=== PATIENT | male | born 1960 ===

== ENCOUNTER 2023-04-19 14:48 | Inpatient (IN) | payer MEDICARE, MEDICAID, SELFPAY ==
[2023-04-19] VITALS (11 sets, daily range): BP systolic 103–122; BP diastolic 68–76; PULSE 108–121; RESP 15–25; TEMP 36.8; O2SAT 94–100
--- NOTE | ~2023-04-19 | XR_ITS ---
EXAMINATION: [id number] DATE: 04/20/2023 14:48 INDICATION: Left knee pain and swelling TECHNIQUE: AP and crosstable lateral views of the left knee were obtained. COMPARISON: None. FINDINGS: Bone alignment is normal. No fracture. Tricompartmental osteoarthritis with marginal osteophytes in a ll 3 compartments of the knee. Severe joint space narrowing the patellofemoral compartment and modera te joint space narrowing the medial compartment which could be underestimated on nonweightbearing mati ging. Small left knee joint effusion with loose osteochondral bodies versus calcific debris in the chan prapatellar pouch. IMPRESSION: 1. Left knee tricompartmental osteoarthritis, severe in the patellofemoral compartment and at least m oderate severity medial compartment. 2. Small left knee joint effusion. Reviewed, dictated and finalized at location A. INE WASHER IMPRESSION: 1. Left knee tricompartmental osteoarthritis, severe in the patellofemoral comp artment and at least moderate severity medial compartment. 2. Small left knee joint effusion.
--- NOTE | ~2023-04-19 | CT_ITS ---
EXAMINATION: CTA chest PE protocol DATE: 04/19/2023 16:24 INDICATION: Tachypnea. Tachycardia. Shortness of breath. TECHNIQUE: Computed tomography angiography (CTA) of the chest was performed with 100 mL Omnipaque-350 intravenous contrast timed to evaluate the pulmonary arteries. Coronal maximum intensity projection 3D-reconstructions were created by the technologist. Automated exposure control and iterative reconst ruction technique were employed. The dose-length product was 613.41 mGy-cm. COMPARISON: None. FINDINGS: There is mild scarring at the lung apices. There is mild scarring in posterior right lung. There is mild emphysema. There is mild atelectasis bilaterally. No pleural effusion. There is a right posterior tracheal diverticulum at the thoracic inlet. The heart size is normal. No pericardial effu jessica. There is no pulmonary embolus. Bilateral gynecomastia is noted. There is mild mediastinal lymph adenopathy, likely reactive. A right upper extremity peripherally inserted central venous catheter (P ICC) is seen with tip at the superior cavoatrial junction. There is moderate thoracic spondylosis. IMPRESSION: 1. No pulmonary embolus. Sensitivity is moderately decreased by motion artifact. 2. Mild emphysema. 3. Mild mediastinal lymphadenopathy, likely reactive. Reviewed, dictated and finalized at location E. CENTER MANAGER IMPRESSION: 1. No pulmonary embolus. Sensitivity is moderately decreased by motion artifact . 2. Mild emphysema. 3. Mild mediastinal lymphadenopathy, likely reactive.
--- NOTE | ~2023-04-19 | CT_ITS ---
EXAMINATION: CT brain wo con DATE: 04/20/2023 10:02 INDICATION: Brain abscess. TECHNIQUE: Computed tomography (CT) of the head was performed without intravenous contrast. The mA wa s adjusted according to patient size. Iterative reconstruction technique was employed. The dose-lengt h product was 681.00 mGy-cm. COMPARISON: None FINDINGS: There is hypoattenuation in the right cerebellum. There are changes of posterior craniotomy . There is no intracranial hemorrhage or abnormal mass lesion. The ventricles are normal in size. The re is mild mucosal thickening in the paranasal sinuses. The mastoid air cells are normal. There is a solange hole in the right frontal bone. IMPRESSION: 1. Hypoattenuation in the right cerebellum, consistent with infarct and/or infection. Correlate with outside imaging. Reviewed, dictated and finalized at location E. GER SPANISH IMPRESSION: 1. Hypoattenuation in the right cerebellum, consistent with infarct and/or infe ction. Correlate with outside imaging.
--- NOTE | 2023-04-19 15:38 | ECG_ITS ---
Measurements Intervals [place] Rate: 112 P: 75 VT: 161 QRS: 70 QRSD: 85 T: -89 QT: 367 QTc: 503 Interpretive Statements SINUS TACHYCARDIA ST-T WAVE ABNORMALITY IN ANTEROLAT/INF LEADS- CONSIDER ISCHEMIA BASELINE ARTIFACT- I, II, AVR, AVL, AVF, V1-V6 ABNORMAL ECG NO PREVIOUS ECG AVAILABLE FOR COMPARISON Electronically Signed On 04-19-2023 15:51:31 [employer]OTGUN SHE[employer] REPRINTING UNIT OPERATOR by John Maxwell D.O.
--- NOTE | 2023-04-19 15:43 | ED.RECABL ---
HPI - Recheck/Abnormal Lab/Rx General Chief Complaint: Recheck/Abnormal Lab/Rx Stated Complaint: r/o PE Time Seen by Provider: 04/19/23 15:16 History of Present Illness HPI narrative: Patient is a 63-year-old male presenting from a rehab center for evaluation of tachypnea. Patient was recently discharged from a tertiary care center after being treated for a brain abscess. Today he was noted to be tachypneic and tachycardic and they became concerned for possible PE given his recent hospitalization. He was sent in for evaluation of this. Currently, the patient denies any complaints. No chest pain or shortness of breath. States that he did cough earlier today. No leg swelling. No complaints currently. Related Data Home Medications Medication Instructions Recorded Confirmed acetaminophen 325 mg tablet 650 mg PO Q4H PRN pain 1-4 04/10/23 04/20/23 atorvastatin 80 mg tablet 80 mg PO DAILY 04/10/23 04/20/23 ceftriaxone 2 gram intravenous 2 g IV Q12H 04/10/23 04/20/23 piggyback heparin (porcine) 5,000 unit/mL 5,000 unit subcut Q8H 04/10/23 04/20/23 injection solution insulin lispro 100 unit/mL 2 - 5 unit subcut TIDWMEAL 04/10/23 04/20/23 subcutaneous solution losartan 25 mg tablet 25 mg PO DAILY 04/10/23 04/20/23 metoprolol tartrate 25 mg tablet 12.5 mg PO BID 04/10/23 04/20/23 metronidazole 500 mg tablet 500 mg PO Q6H 04/10/23 04/20/23 quetiapine 25 mg tablet 12.5 mg PO BID@0900,1500 04/10/23 04/20/23 quetiapine 25 mg tablet 25 mg PO HS 04/10/23 04/20/23 ramelteon 8 mg tablet (Rozerem) 8 mg PO HS 04/10/23 04/20/23 sodium chloride 1,000 mg soluble 1,000 mg PO TIDWM 04/10/23 04/20/23 tablet thiamine HCl (vitamin B1) 100 mg 100 mg PO DAILY 04/10/23 04/20/23 tablet polyethylene glycol 3350 17 gram 17 g PO DAILY PRN Constipation 04/20/23 04/20/23 oral powder packet tramadol 50 mg tablet 50 mg PO Q6H PRN pain 6-10 04/20/23 04/20/23 Allergies Allergy/AdvReac Type Severity Reaction Status Date / Time codeine Allergy Hives Verified 04/10/23 15:00 hydromorphone [From Dilaudid] AdvReac Agitated Verified 04/21/23 03:40 Review of Systems Review of Systems: All systems reviewed & are unremarkable except as noted in HPI and below PMFSH Past Medical History Medical History Brain surgery within last 3 months HTN (hypertension) Family History Family History Other Unknown family medical history Social History Social History Smoking status: Never smoker Alcohol intake: never Substance use: never Do You Feel Safe in your Home?: Yes Lack of Transportation: No Lack of Food: Never True Current Housing: I Have Housing Concerned About Future Housing: No Difficulty Paying Gas/Electric Bills: No Difficulty Paying for Meds: No Currently Unemployed: No Education: High School Diploma/GED Difficulty w/ Childcare or Family Care: No Spiritual care concerns: No Exam Narrative: GENERAL: nontoxic, no acute distress HEAD: Normocephalic, atraumatic. EYES: PERRLA and EOMI. ENT: grossly unremarkable NECK: Supple. CHEST: Clear to auscultation. No respiratory distress. HEART: tachycardic, regular rhythm ABDOMEN: Soft, nontender, nondistended EXTREMITIES: Normal range of motion. No edema. SKIN: Warm, dry NEURO: at baseline Alert and oriented x2. PSYCH: Normal mood and affect. Course Vital Signs Vital signs: Vital Signs Temperature 98.2 F 04/19/23 14:48 Pulse Rate 108 H 04/19/23 14:48 Respiratory Rate 16 04/19/23 14:48 Blood Pressure 103/72 04/19/23 14:48 Pulse Oximetry 100 04/19/23 14:48 Oxygen Delivery Room Air 04/19/23 14:48 Temperature 99.6 F 04/21/23 16:00 Pulse Rate 122 H 04/21/23 18:00 Respiratory Rate 28 H 04/21/23 16:00 Blood Pressure 108/66 04/21/23 16:00 Pu
[2023-04-19] MEDS: SODIUM CHLORIDE 0.9% IV 1,000 ML 999 ML IV CONT ×2 (15:46→20:50)
[2023-04-19 15:52] LABS: Basophils Percent Auto 0.3 % (0.2-1.2); Eosinophils Absolute Auto 0.2 K/mm3 (0-0.3); Eosinophils Percent Auto 1.7 % (0-4.4); Hematocrit 27.2 % (42.0-52.0); Hemoglobin 8.6 g/dL (14.0-18.0); Immature Granulocyte Absolute 0.04 K/mm3 (0.00-0.031); Immature Granulocyte Percent A 0.4 % (0-0.5); Lymphocytes Percent Auto 9.8 % (18.3-44.2); Mean Corpuscular HGB Conc 31.6 g/dl (32-36); Mean Corpuscular Hemoglobin 30.3 pg (26-34); Mean Corpuscular Volume 95.8 fl (80-100); Mean Platelet Volume 9.2 fl (7.4-10.4); Monocytes Absolute Auto 0.8 K/mm3 (0.1-0.6); Monocytes Percent Auto 8.2 % (2.6-8.5); Neutrophils Absolute Auto 7.3 K/mm3 (1.3-6.7); Neutrophils Percent Auto 79.6 % (45.5-73.1); Platelet Count Result 283 k/mm3 (150-375); Red Blood Count 2.84 M/mm3 (4.6-6.20); White Blood Count 9.2 K/mm3 (4.5-10.0)
[2023-04-19 16:03] LABS: INR 1.4; Prothrombin Time 17.8 Seconds (11.1-14.7)
[2023-04-19 16:04] LABS: Partial Thromboplastin Time 63.3 SECONDS (22.3-36.8)
[2023-04-19 16:05] LABS: Alanine Aminotransferase 71 U/L (6-50); Albumin Level 3.1 g/dL (3.5-5.1); Alkaline Phosphatase 89 U/L (38-126); Anion Gap 4 mmol/L (8-16); Aspartate Amino Transferase 47 U/L (17-59); Bilirubin,Total 0.5 mg/dL (0.2-1.3); Blood Urea Nitrogen 10 mg/dL (9-20); Calcium 8.2 mg/dL (8.4-10.2); Carbon Dioxide 29 mmol/L (22-30); Chloride 93 mmol/L (98-107); Estimated CRCL calculation 127 ml/min; Estimated Glomerular Filt Rate > 60; Glucose 117 mg/dL (65-110); Potassium 3.9 mmol/L (3.4-5.0); Sodium 126 mmol/L (137-145)
--- NOTE | 2023-04-19 16:14 | PC.NURSE ---
Pt taken to ct
--- NOTE | 2023-04-19 16:22 | PC.NURSE ---
pt returned to room 3
[2023-04-19 16:37] LABS: Influenza A QL RT-PCR Negative (Negative); Influenza B QL RT-PCR Negative (Negative); RSV RNA, RT-PCR Negative (Negative); SARS-CoV-2 RNA PCR Negative (Negative)
--- NOTE | 2023-04-19 18:09 | PC.NURSE ---
Mela at [facility] called for update on patient
--- NOTE | 2023-04-19 18:19 | PC.NURSE ---
Ice chips provided per request after MD approval
--- NOTE | 2023-04-19 19:07 | PC.NURSE ---
Report given to SHELLY Zayas. Care of pt transferred.
--- NOTE | 2023-04-19 19:16 | ECG_ITS ---
Measurements Intervals [place] Rate: 118 P: 62 AR: 167 QRS: 60 QRSD: 89 T: 256 QT: 330 QTc: 463 Interpretive Statements SINUS TACHYCARDIA ST-T WAVE ABNORMALITY IN ANTNEROLAT/INF LEADS- CONSIDER ISCHEMIA ABNORMAL ECG COMPARED TO ECG 04/19/2023 15:47:54 NO SIGNIFICANT CHANGES Electronically Signed On 04-20-2023 10:50:[address]MIN[address] by John Maxwell D.O.
[2023-04-19 19:43] LABS: Troponin I 0.093 ng/mL (0.000-0.034)
--- NOTE | 2023-04-19 20:38 | PM.IMHP ---
H&P: HPI History of Present Illness Date/Time: 04/19/23 20:38 Chief Complaint: Tachycardic Narrative: This is a 63-year-old male with past medical history significant abscess complicated with intracranial hemorrhage and mass effect, takotsubo cardiomyopathy, who comes for evaluation to the emergency room from [facility] patient was tachycardic while in his physical therapy session. In emergency room preliminary workup was significant for chemistry panel shows sodium 126 chloride 95, patient was ruled out for PE with a negative CTA chest PE protocol EXAMINATION: CTA chest PE protocol DATE: 04/19/2023 16:24 INDICATION: Tachypnea. Tachycardia. Shortness of breath. TECHNIQUE: Computed tomography angiography (CTA) of the chest was performed with 100 mL Omnipaque-350 intravenous contrast timed to evaluate the pulmonary arteries. Coronal maximum intensity projection 3D-reconstructions were created by the technologist. Automated exposure control and iterative reconstruction technique were employed. The dose-length product was 613.41 mGy-cm. COMPARISON: None. FINDINGS: There is mild scarring at the lung apices. There is mild scarring in posterior right lung. There is mild emphysema. There is mild atelectasis bilaterally. No pleural effusion. There is a right posterior tracheal diverticulum at the thoracic inlet. The heart size is normal. No pericardial effusion. There is no pulmonary embolus. Bilateral gynecomastia is noted. There is mild mediastinal lymphadenopathy, likely reactive. A right upper extremity peripherally inserted central venous catheter (PICC) is seen with tip at the superior cavoatrial junction. There is moderate thoracic spondylosis. IMPRESSION: 1. No pulmonary embolus. Sensitivity is moderately decreased by motion artifact. 2. Mild emphysema. 3. Mild mediastinal lymphadenopathy, likely reactive. Review of Systems Review of Systems: brain abscess, intracranial hemorrhage ROS unobtainable: Yes unobtainable due to medical condition ( patient is unable to provide any meaningful history) [facility] Past Medical History Medical History Brain surgery within last 3 months HTN (hypertension) Family History Family History Other Unknown family medical history Social History Social History Smoking status: Never smoker Alcohol intake: never Substance use: never Do You Feel Safe in your Home?: Yes Lack of Transportation: No Lack of Food: Never True Current Housing: I Have Housing Concerned About Future Housing: No Difficulty Paying Gas/Electric Bills: No Difficulty Paying for Meds: No Currently Unemployed: No Education: High School Diploma/GED Difficulty w/ Childcare or Family Care: No Spiritual care concerns: No Meds Home Medications and Allergies Home Medications Medication Instructions Recorded Confirmed Type acetaminophen 325 mg tablet 650 mg PO Q4H PRN pain 1-4 04/10/23 04/20/23 History atorvastatin 80 mg tablet 80 mg PO DAILY 04/10/23 04/20/23 History ceftriaxone 2 gram intravenous 2 g IV Q12H 04/10/23 04/20/23 History piggyback heparin (porcine) 5,000 unit/mL 5,000 unit subcut Q8H 04/10/23 04/20/23 History injection solution insulin lispro 100 unit/mL 2 - 5 unit subcut TIDWMEAL 04/10/23 04/20/23 History subcutaneous solution losartan 25 mg tablet 25 mg PO DAILY 04/10/23 04/20/23 History metoprolol tartrate 25 mg tablet 12.5 mg PO BID 04/10/23 04/20/23 History metronidazole 500 mg tablet 500 mg PO Q6H 04/10/23 04/20/23 History quetiapine 25 mg tablet 12.5 mg PO BID@0900,1500 04/10/23 04/20/23 History quetiapine 25 mg tablet 25 mg PO HS 04/10/23 04/20/23 History ramelteon 8 mg tablet (Rozerem) 8 mg PO HS 04/10/23 04/20/23 History sodium chloride 1,000 mg soluble 1
--- NOTE | 2023-04-19 21:56 | ECG_ITS ---
Measurements Intervals [place] Rate: 115 P: 84 MN: 160 QRS: 71 QRSD: 97 T: 261 QT: 363 QTc: 503 Interpretive Statements SINUS TACHYCARDIA ST-T WAVE ABNORMALITY IN ANTEROLAT/INF LEADS- CONSIDER ISCHEMIA BASELINE ARTIFACT- I, V1-V2 ABNORMAL ECG COMPARED TO ECG 04/19/2023 19:16:02 NO SIGNIFICANT CHANGES Electronically Signed On 04-20-2023 10:59:41 FORESTRY CREW CHIEF by John Maxwell D.O.
[2023-04-19 22:33] LABS: Troponin I 0.096 ng/mL (0.000-0.034)
--- NOTE | 2023-04-19 23:15 | ADMGEN ---
This patient, Pernell Kennedy, was admitted to Intensive Care Unit-1. Patient/family oriented to hospital policies and general routines including ID bracelet, bed and alarms, visiting hours, pain management, procedures, bathroom and other care routines, personal items, smoking policy, room service/diet, and visiting hours. Information on how to activate the Rapid Response Team has been discussed. Patient/Family are encouraged to report perceived risks to care and to ask questions if they do not understand what they are told or what they should do.
[2023-04-20] VITALS (15 sets, daily range): BP systolic 101–143; BP diastolic 60–97; PULSE 98–123; RESP 15–30; TEMP 36.8–37.5; O2SAT 95–100
[2023-04-20] MEDS: CENTRAL LINE FLUSH 10 ML IV PUSH ×4 (04:54→21:04)
[2023-04-20 05:15] LABS: Hematocrit 25.6 % (42.0-52.0); Hemoglobin 8.2 g/dL (14.0-18.0); Mean Corpuscular Hemoglobin 30.3 pg (26-34); Mean Corpuscular Volume 94.5 fl (80-100); Mean Platelet Volume 9.8 fl (7.4-10.4); Platelet Count Result 308 k/mm3 (150-375); Red Blood Count 2.71 M/mm3 (4.6-6.20); Red Cell Distribution Width 13.9 % (11.5-14.5); White Blood Count 8.7 K/mm3 (4.5-10.0)
[2023-04-20 05:21] LABS: Magnesium 1.7 mg/dL (1.6-2.3); Phosphorus 3.7 mg/dL (2.5-4.5)
--- NOTE | 2023-04-20 06:00 | ECHO_ITS ---
Patient Info Name: Pernell Kennedy Age: 63 years : 1960 Gender: Male Ht: 78 in Wt: 187 lbs BSA: 2.15 m2 HR: 106 bpm BP: 143 / 78 mmHg Heart Rhythm: Tachycardia Technical Quality: Poor Exam Date: 04/20/2023 8:57 AM Exam Location: Echo Lab Patient Status: Inpatient Admit Date: 04/19/2023 Staff Ordering Physician: Odalis Mohr MD Mexican Food Maker Hand: Casie Weeks RDCS Attending Provider: Kenya Hinkle MD Referring Physician: Onur MENSAH; Exam Type: CA echo dop color flow w con Study Info Indications - elevated troponin, recent hx of takotsubo Complete two-dimensional, color flow and Doppler transthoracic echocardiogram is performed with contrast to opacify the left ventricle and to improve the deliniation of the left ventricle endocardial borders. Contrast/Agitated Saline Contrast/Ag. Saline: Definity Amount: 3.00 ml Reason for Poor Study: poor echocardiographic windows Summary 1. Normal left ventricular size with mild concentric hypertrophy. The left ventricle is not well visualized even with Definity echo contrast, but there appears to be mild to moderate global hypokinesis. Ejection fraction is 40-50% visually. Normal diastolic function. 2. Left atrial chamber dimension is mildly enlarged. 3. No significant valve disease. 4. Normal estimated pulmonary pressure. 5. Tachycardia, probably sinus tachycardia. 6. Technically difficult study with limited views. Left Ventricle Left ventricular chamber dimension is normal. Left ventricular systolic function is normal, estimated at 40-45%. There is mildly increased left ventricular wall thickness. Left ventricular septal wall motion is normal. The left ventricular diastolic function is normal. Right Ventricle Right ventricular chamber dimension is normal. Right ventricular systolic function is normal. Left Atria Left atrial chamber dimension is mildly enlarged. Right Atria Right atrial chamber dimension is normal. Aortic Valve The aortic valve is trileaflet. There is no aortic valve sclerosis. There is no aortic valve stenosis. There is no aortic valve regurgitation. Pulmonic Valve The pulmonic valve is normal. There is no pulmonic valve stenosis. There is no pulmonic regurgitation. Mitral Valve The mitral valve has normal leaflets. There is no mitral valve stenosis. There is trace mitral valve regurgitation. Tricuspid Valve The tricuspid valve leaflets are normal. There is no significant tricuspid valve stenosis. There is trace tricuspid valve regurgitation. No pulmonary hypertension, estimated pulmonary arterial systolic pressure is 26 mmHg. Pericardium/Pleural The pericardium appears normal. There is no pericardial effusion. Inferior Vena Cava Normal inferior vena cava with >50% collapse upon inspiration consistent with Empty right atrial pressure, 10 mmHg. Aorta The aortic root size at the sinus of Valsalva is normal. The prox ascending aorta size is normal. Left Ventricular Outflow Tract Name Value Normal LVOT 2D LVOT Diameter 2.11 cm LVOT Doppler LVOT Peak Gradient 4 mmHg LVOT Mean Gradient 2 mmHg
[2023-04-20 08:29] LABS: Anion Gap 5 mmol/L (8-16); Blood Urea Nitrogen 6 mg/dL (9-20); Calcium 8.2 mg/dL (8.4-10.2); Carbon Dioxide 27 mmol/L (22-30); Chloride 97 mmol/L (98-107); Estimated CRCL calculation 139 ml/min; Estimated Glomerular Filt Rate > 60; Glucose 97 mg/dL (65-110); Potassium 3.5 mmol/L (3.4-5.0); Sodium 129 mmol/L (137-145)
[2023-04-20] MEDS: PERFLUTREN LIPID MICROSPHERES 1.5 ML VIAL DILUTED TO 10 ML TOTAL VOLUME IV PUSH (08:55)
[2023-04-20 09:02] LABS: Troponin I 0.086 ng/mL (0.000-0.034)
[2023-04-20] MEDS: HEPARIN SODIUM 5,000 UNITS/ML VIAL 5000 UNITS SUB-Q ×3 (10:15→21:04)
[2023-04-20] MEDS: ATORVASTATIN 40 MG TABLET 80 MG PO (10:16)
[2023-04-20] MEDS: THIAMINE HCL 100 MG TABLET PO (10:16)
[2023-04-20] MEDS: METOPROLOL TARTRATE 12.5 MG TABLET PO ×2 (10:16→21:03)
[2023-04-20] MEDS: SODIUM CHLORIDE 1 GM TABLET PO ×3 (10:16→17:24)
[2023-04-20] MEDS: LOSARTAN POTASSIUM 25 MG TABLET PO (10:16)
[2023-04-20] MEDS: QUEtiapine FUMARATE 12.5 MG TABLET PO ×2 (10:16→14:10)
--- NOTE | 2023-04-20 10:16 | PCOTNOTE ---
RN requesting hold on OT evaluation this morning due to multiple tests this morning and pt has not had morning meds yet. RN asks to check back in the pm.
[2023-04-20] MEDS: metroNIDAZOLE 250 MG TABLET 500 MG PO ×2 (10:17→17:24)
[2023-04-20] MEDS: cefTRIAXone 2 GM/NS 100 ML 2 GM/100 ML BAG IVPB ×2 (10:18→21:03)
[2023-04-20] MEDS: MAGNESIUM SULF 2 GM/WATER 50ML 2 GM/50 ML BAG IVPB (10:26)
[2023-04-20 11:28] LABS: Glucose Point of Care 214 mg/dl (65-105)
--- NOTE | 2023-04-20 11:50 | PC.NURSE ---
Moni from [facility] transfer center called; patient has been accepting but no bed available yet
--- NOTE | 2023-04-20 11:56 | IVDEFINITY ---
Prior to administration of IV Definity the patient was educated on the risks and benefits of the imaging enhancing agent including potential adverse side effects. The patient verbalized understanding. Allergies were verified. No exclusion criteria were identified and at least one of the following inclusion criteria were met: 1) physician request, 2) patient technically difficult to image (per the [place] [employer] Echocardi[employer] guidelines of two or more segments not discernable within the apical view), or 3) questionable left ventricular function. ?
[2023-04-20] MEDS: INSULIN ASPART (*BKC) 100 UNITS/ML SUB-Q (12:07)
--- NOTE | 2023-04-20 13:33 | PM.IMPN ---
Progress Note: A&P Assessment and Plan (1) Tachycardia: Code(s): R00.0 - Tachycardia, unspecified Status: Acute Assessment and Plan: Cause of tachycardia unknown. Patient continues to have it between 100- 110. Due to tachycardia combined with tachypnea there was concern for underlying infection that has not been identified yet. Due to history of brain abscess transfer to [facility] has been initiated patient is on wait list. Will obtained echocardiogram in a.m. Patient does not have elevated white count. TSH pending. UA ordered. Patient did have sodium of 126 is improved to 129. (2) Brain abscess: Code(s): G06.0 - Intracranial abscess and granuloma Status: Acute Assessment and Plan: Currently on Flagyl and ceftriaxone PICC line in place Patient to be on Rocephin through May 11 and Flagyl through May 10. Due to brain abscess and possible complications that arise patient will be transferred to [facility]. Verbally consulted with neurology and they agree with transfer at this time. (3) Hyponatremia: Code(s): E87.1 - Hypo-osmolality and hyponatremia Status: Acute Assessment and Plan: Hyponatremia could be due to SIADH syndrome and or the inability for the brain to regulate sodium due to acute infection Monitor daily labs. Sodium improving with IV fluids. (4) Gait abnormality: Code(s): R26.9 - Unspecified abnormalities of gait and mobility Status: Acute Assessment and Plan: Undergoing physical rehabilitation with PT OT (5) Debilitated: Code(s): R53.81 - Other malaise Status: Acute Assessment and Plan: likely secondary to acute illness and prolonged hospitalization (6) Cardiomyopathy: Code(s): I42.9 - Cardiomyopathy, unspecified Status: Acute Assessment and Plan: patient does not appear to be in acute exacerbation physical exam (7) 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 - Other specified disorders of brain Status: Acute Assessment and Plan: follow-up in outpatient setting Subjective Date/time seen: 04/20/23 13:33 Interval history: Patient doing well today. He is aware that he is [facility] but not sure why he been hospitalized. He could tell me the year but was unsure who the president was. Unknown if he has baseline of. He does have history brain abscess and after discussing with here my partners and attending as well as Neurology given this the patient transferred back to you seeing her the brain abscess was treated due to the inability to manage brain abscess here [facility]. He continues to be tachypneic and tachycardic. Exam Narrative: GENERAL: Comfortable, no acute distress HENMT: moist mucous membranes EYES: EOM intact b/l NECK: no lymphadenopathy RESPIRATORY: clear to auscultation CARDIO: Tachycardic, a regular rhythm GI: soft, nontender, bowel sounds present SKIN: no rashes EXTREMITIES: no edema, redness or tenderness Objective Data Vital Signs Vital Signs: Vital Signs - 24 hr 04/19/23 14:48 04/19/23 17:06 04/19/23 14:59 Temperature 98.2 F Pulse Rate 108 H 111 H Respiratory Rate 16 24 H Blood Pressure 103/72 103/72 Pulse Oximetry 100 95 99 Oxygen Delivery Room Air Room Air 04/19/23 15:01 04/19/23 15:33 04/19/23 17:09 Temperature Pulse Rate 110 H 110 H 120 H Respiratory Rate 22 H 24 H 24 H Blood Pressure 104/69 122/71 Pulse Oximetry 97 98 94 Oxygen Delivery 04/19/23 17:17 04/19/23 17:31 04/19/23 17:46 Temperature Pulse Rate 120 H 121 H 120 H Respiratory Rate 19 25 H 24 H Blood Pressure 121/68 118/71 Pulse Oximetry 94 95 96 Oxygen Delivery 04/19/23 21:31 04/19/23 23:03 04/20/23 00:00 Temperature Pulse Rate 119 H 112 H 103 H Respiratory Rate 15 15 Blood Pressure 114/76 106/76 Pulse Oximetry 99 98 Oxygen Delivery 04/20/23 00:00
[2023-04-20 14:03] LABS: Thyroid Stimulating Hormone Reflex 0.705 uIU/mL (0.465-4.68)
[2023-04-20] MEDS: traMADol HCL (*CRX) 50 MG TABLET PO ×2 (14:10→21:03)
--- NOTE | 2023-04-20 14:52 | PCPTNOTE ---
Pt has a L knee x-ray pending. Will see pt after testing is completed.
[2023-04-20 15:54] LABS: Glucose Point of Care 121 mg/dl (65-105)
[2023-04-20 17:48] LABS: Appearance Urine Clear (Clear); Bacteria Urine None Seen /hpf; Bilirubin Urine Negative (Negative); Blood Urine Negative (Negative); Color Urine Yellow (Yellow); Glucose Urine UA Negative (Negative); Ketones Urine Trace mg/dL (Negative); Leukocyte Esterase Ur Trace LEU/UL (Negative); Nitrate Urine Negative (Negative); Non Pathogenic Casts 0-2; Protein Urine 1+ mg/dL (Negative); RBC Urine 0-2 /hpf (0-2); Specific Grav Ur 1.017 (1.001-1.035); Squamous Epithelial Cell Urine None seen /hpf (Few); Urobilinogen Urine 0.2 mg/dL (<2.0); WBC Urine 0-5 /hpf
[2023-04-20 17:49] LABS: Add Urine Microscopic? YES
[2023-04-20] MEDS: QUEtiapine FUMARATE 25 MG TABLET PO (21:03)
[2023-04-20 21:25] LABS: Glucose Point of Care 191 mg/dl (65-105)
[2023-04-21] VITALS (12 sets, daily range): BP systolic 92–115; BP diastolic 66–91; PULSE 110–124; RESP 19–28; TEMP 36.6–37.6; O2SAT 95–100
[2023-04-21] MEDS: ACETAMINOPHEN 325 MG TABLET 650 MG PO ×2 (00:21→08:11)
[2023-04-21] MEDS: metroNIDAZOLE 250 MG TABLET 500 MG PO ×4 (00:22→17:45)
[2023-04-21] MEDS: HYDROmorphone HCL INJ (*CRX) 1 MG/ML SYR IV PUSH (00:50)
[2023-04-21] MEDS: LIDOCAINE 5% PATCH 1 PATCH TRANSDERM ×2 (01:10→08:10)
[2023-04-21] MEDS: HEPARIN SODIUM 5,000 UNITS/ML VIAL 5000 UNITS SUB-Q ×2 (05:12→15:16)
[2023-04-21] MEDS: CENTRAL LINE FLUSH 10 ML IV PUSH ×2 (05:13→15:16)
[2023-04-21 05:32] LABS: Hematocrit 27.8 % (42.0-52.0); Hemoglobin 8.7 g/dL (14.0-18.0); Mean Corpuscular HGB Conc 31.3 g/dl (32-36); Mean Corpuscular Hemoglobin 30.4 pg (26-34); Mean Corpuscular Volume 97.2 fl (80-100); Mean Platelet Volume 9.3 fl (7.4-10.4); Platelet Count Result 364 k/mm3 (150-375); Red Blood Count 2.86 M/mm3 (4.6-6.20); Red Cell Distribution Width 13.8 % (11.5-14.5); White Blood Count 10.8 K/mm3 (4.5-10.0)
[2023-04-21 05:46] LABS: Anion Gap 6 mmol/L (8-16); Blood Urea Nitrogen 5 mg/dL (9-20); Calcium 8.4 mg/dL (8.4-10.2); Carbon Dioxide 30 mmol/L (22-30); Chloride 90 mmol/L (98-107); Estimated CRCL calculation 139 ml/min; Estimated Glomerular Filt Rate > 60; Glucose 121 mg/dL (65-110); Magnesium 1.9 mg/dL (1.6-2.3); Phosphorus 3.9 mg/dL (2.5-4.5); Potassium 3.8 mmol/L (3.4-5.0); Sodium 126 mmol/L (137-145)
[2023-04-21 07:58] LABS: Uric Acid 2.7 mg/dL (3.5-8.5)
[2023-04-21 08:02] LABS: Glucose Point of Care 129 mg/dl (65-105)
[2023-04-21] MEDS: LOSARTAN POTASSIUM 25 MG TABLET PO (08:09)
[2023-04-21] MEDS: ATORVASTATIN 40 MG TABLET 80 MG PO (08:09)
[2023-04-21] MEDS: QUEtiapine FUMARATE 12.5 MG TABLET PO ×2 (08:09→15:16)
[2023-04-21] MEDS: SODIUM CHLORIDE 1 GM TABLET PO ×3 (08:09→17:45)
[2023-04-21] MEDS: THIAMINE HCL 100 MG TABLET PO (08:09)
[2023-04-21] MEDS: METOPROLOL TARTRATE 12.5 MG TABLET PO (08:11)
[2023-04-21] MEDS: cefTRIAXone 2 GM/NS 100 ML 2 GM/100 ML BAG IVPB (08:11)
[2023-04-21] MEDS: SODIUM CHLORIDE 0.9% IV 1,000 ML 100 ML IV CONT (11:57)
[2023-04-21 12:15] LABS: Glucose Point of Care 183 mg/dl (65-105)
[2023-04-21 12:38] LABS: Creatinine Urine 123.4 mg/dL
[2023-04-21 12:46] LABS: Sodium Urine Random 83 meq/L
--- NOTE | 2023-04-21 13:05 | PM.IMPN ---
Progress Note: A&P Assessment and Plan (1) Tachycardia: Code(s): R00.0 - Tachycardia, unspecified Status: Acute Assessment and Plan: Cause of tachycardia unknown. Patient continues to have it between 100- 110. Due to tachycardia combined with tachypnea there was concern for underlying infection that has not been identified yet. Due to history of brain abscess transfer to [facility] has been initiated patient is on wait list. Will obtained echocardiogram in a.m. Patient does not have elevated white count. TSH Normal UA without signs of infection (2) Brain abscess: Code(s): G06.0 - Intracranial abscess and granuloma Status: Acute Assessment and Plan: Currently on Flagyl and ceftriaxone PICC line in place Patient to be on Rocephin through May 11 and Flagyl through May 10. Due to brain abscess and possible complications that arise patient will be transferred to [facility]. Verbally consulted with neurology and they agree with transfer at this time. (3) Hyponatremia: Code(s): E87.1 - Hypo-osmolality and hyponatremia Status: Acute Assessment and Plan: Hyponatremia could be due to SIADH syndrome and or the inability for the brain to regulate sodium due to acute infection Monitor daily labs. Sodium: 126, 129, 126 IV fluids continued. FENa: 0.3% Cortisol ordered for the norming. 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 Patient is unsure if he wants to proceed with care at [facility]. Described to him that we are on able to care for him at [place] due to the severity of his condition. He voices understanding of this. He denied any chest pain or heart palpitations. He was alert and oriented x4. He is still on the transfer list. Did have discussion with him about his code status and he did prefer to be changed to a DNR and would not like extensive lyse AV measures done to him. His Code status was changed. Exam Narrative: GENERAL: Comfortable, no acute distress HENMT: moist mucous membranes EYES: EOM intact b/l NECK: no lymphadenopathy RESPIRATORY: clear to auscultation CARDIO: Tachycardic, a regular rhythm GI: soft, nontender, bowel sounds present SKIN: no rashes EXTREMITIES: left knee swelling, no tenderness to palpation, no redness or warmth. Objective Data Vital Signs Vital Signs: Vital Signs - 24 hr 04/20/23 13:13 04/20/23 14:00 04/20/23 16:00 Temperature Pulse Rate 102 H 110 H Respiratory Rate Blood Pressure Pulse Oximetry Oxygen Delivery Room Air 04/20/23 16:00 04/20/23 16:00 04/20/23 18:00 Temperature 98.4 F Pulse Rate 117 H 118 H Respiratory Rate 26 H Blood Pressure 107/63 Pulse Oximetry Oxygen Delivery Room Air 04/20/23 21:03 04/20/23 20:00 04/20/23 20:00 Temperature 99.5 F Pulse Rate 122 H 123 H Respiratory Rate 23 H Blood Pressure 115/60 Pulse Oximetry 95 Oxygen Delivery Room Air 04/20/23 20:00 04/20/23 22:00 04/21/23 00:00 Temperature Pulse Rate 118 H 113 H Respiratory Rate Blood Pressure Pulse Oximetry
--- NOTE | 2023-04-21 16:17 | PM.CNNEP ---
Assessment and Plan Assessment and plan (1) Hyponatremia: Code(s): E87.1 - Hypo-osmolality and hyponatremia Status: Acute Assessment and Plan: likely secondary to combination of diuretics+/- brain infection fluctuating sodiums noted since admission follow trend with treatment of brain infection consider salt tablets if remains hospitalized here, will proceed with further work-up (2) Brain abscess: Code(s): G06.0 - Intracranial abscess and granuloma Status: Acute Assessment and Plan: on antibiotics noted plans for transfer to [facility] I will continue follow patient with you while he remains hospitalized to make further recommendations as deemed necessary. Thank you for allowing me to participate in care of this patient. History of Present Illness Reason for Consult Consult date: 04/21/23 Reason for consult: hyponatremia Chief Complaint Chief complaint: Elevated Troponin History of Present Illness Narrative: The patient is a 63-year-old male with a past medical history as outlined below who presented to [facility] Emergency room from his rehab facility for further evaluation of tachycardia. There was a concern at his nursing facility that he may have had a pulmonary embolism due to his recent hospitalization prior to transferred to rehab. Subsequent workup and evaluation in the emergency room included a CT of his chest which definitively ruled out a pulmonary embolism but he continued to be tachycardic. The further workup and evaluation including imaging studies and blood work did not reveal any acute signs of infection. There was a concern that his tachycardia and tachypnea may be related his known history of a brain infection and subsequent worsening of this. He was admitted the hospital also little with initiation of broad-spectrum IV antibiotic therapy after appropriate cultures were obtained Since his admission, he has been noted that he has issues with hyponatremia. This seems to be somewhat of a chronic issue as even labs earlier this month showed his sodium level be on the lower side of normal at 131 millimoles per L. On admission, his sodium level was 126 and it did transiently increased to 129 before fluctuating back down to 126 again. Renal consultation was requested due to this hyponatremia. From my discussion with the patient, he has not recall ever being told that he had any issues or problems with hyponatremia prior to this hospitalization or on any of his other previous hospitalizations. In spite of his hyponatremia, he does not appear to be symptomatic with it with regard to any type of neurological sequelae but this of course is complicated by fact that he does have a history of a brain abscess which in of itself could be the etiology of his hyponatremia and could also cause neurological symptoms if he develops any. I am informed by nursing that the patient has been accepted to [facility] for transfer given his complex medical history particularly with regard to his brain abscess. If he remains hospitalized here for a prolonged period time, I will pursue further workup and evaluation but the presumption is that if his brain infection is as severe as indicated, this in of itself may be the etiology of his hyponatremia and correction /treatment of this issue may help improve his sodium level more efficiently. He currently does not appear to be in any acute distress at the time of my visit. Review of Systems Review of Systems: As per HPI. [facility], LAT[facility] Past Medical History Medical History Brain surgery within last 3 months HTN (hypertension) Family History Family History Other Unknown family medical history Social History Social History Smoking status: Never smoker Alcohol intake: former
[2023-04-21 17:32] LABS: Glucose Point of Care 144 mg/dl (65-105)
[2023-04-21] MEDS: traMADol HCL (*CRX) 50 MG TABLET PO (17:47)
[2023-04-21 18:16] LABS: Anion Gap 7 mmol/L (8-16); Blood Urea Nitrogen 7 mg/dL (9-20); Calcium 8.3 mg/dL (8.4-10.2); Carbon Dioxide 29 mmol/L (22-30); Chloride 92 mmol/L (98-107); Estimated CRCL calculation 139 ml/min; Estimated Glomerular Filt Rate > 60; Glucose 137 mg/dL (65-110); Sodium 128 mmol/L (137-145)
--- NOTE | 2023-04-22 14:01 | PM.TDS ---
Transfer Discharge Sum: Prov Provider Date of admission: 04/21/23 16:17 Primary care physician: UNKNOWN,DOCTOR Admitting clinician: Kenya Hinkle MD Consults: 04/21/23 13:11 Consult to Physician Routine Comment: spoke with Dr. Adrian [phone],) Consulting Provider: Suzy Adrian outbound call center representative/MD group to consult: nephrology Reason for consultation: hyponatremia Has provider been notified: Yes DS: Admitting Diagnosis Discharge Date 04/21/23 Admitting Diagnosis tachycardia, tachypnea, brain abscess DS: Discharge Diagnosis Discharge Diagnosis (1) Tachycardia: Code(s): R00.0 - Tachycardia, unspecified Status: Acute (2) Brain abscess: Code(s): G06.0 - Intracranial abscess and granuloma Status: Acute (3) Hyponatremia: Code(s): E87.1 - Hypo-osmolality and hyponatremia Status: Acute (4) Gait abnormality: Code(s): R26.9 - Unspecified abnormalities of gait and mobility Status: Acute (5) Debilitated: Code(s): R53.81 - Other malaise Status: Acute (6) Cardiomyopathy: Code(s): I42.9 - Cardiomyopathy, unspecified Status: Acute (7) 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 - Other specified disorders of brain Status: Acute Transfer Discharge Sum: Med Medications Active and Home Medications: Home Medications acetaminophen 325 mg tablet 650 mg PO Q4H PRN pain 1-4 04/10/23 [History Confirmed 04/20/23] atorvastatin 80 mg tablet 80 mg PO DAILY 04/10/23 [History Confirmed 04/20/23] ceftriaxone 2 gram intravenous piggyback 2 g IV Q12H 04/10/23 [History Confirmed 04/20/23] heparin (porcine) 5,000 unit/mL injection solution 5,000 unit subcut Q8H 04/10/23 [History Confirmed 04/20/23] insulin lispro 100 unit/mL subcutaneous solution 2 - 5 unit subcut TIDWMEAL 04/10/23 [History Confirmed 04/20/23] losartan 25 mg tablet 25 mg PO DAILY 04/10/23 [History Confirmed 04/20/23] metoprolol tartrate 25 mg tablet 12.5 mg PO BID 04/10/23 [History Confirmed 04/20/23] metronidazole 500 mg tablet 500 mg PO Q6H 04/10/23 [History Confirmed 04/20/23] quetiapine 25 mg tablet 12.5 mg PO BID@0900,1500 04/10/23 [History Confirmed 04/20/23] quetiapine 25 mg tablet 25 mg PO HS 04/10/23 [History Confirmed 04/20/23] ramelteon 8 mg tablet (Rozerem) 8 mg PO HS 04/10/23 [History Confirmed 04/20/23] sodium chloride 1,000 mg soluble tablet 1,000 mg PO TIDWM 04/10/23 [History Confirmed 04/20/23] thiamine HCl (vitamin B1) 100 mg tablet 100 mg PO DAILY 04/10/23 [History Confirmed 04/20/23] polyethylene glycol 3350 17 gram oral powder packet 17 g PO DAILY PRN Constipation 04/20/23 [History Confirmed 04/20/23] tramadol 50 mg tablet 50 mg PO Q6H PRN pain 6-10 04/20/23 [History Confirmed 04/20/23] Transfer Discharge Sum: Hosp Hospital Course Hospital course: Pernell Kennedy is a 63 year old male With a past medical history of brain abscess that was recently treated and currently on antibiotic therapy and hypertension that presents to the ED on 04/19/2023 from his rehab facility for evaluation of tachycardia. There was concerns for a PE due to recent hospitalization. CTA of the chest was performed and ruled out a PE. He was admitted for further workup. Patient's chest x-ray, UA, CBC, CMP did not reveal any signs of infection. He remained tachycardic and tachypneic while in the hospital and there was concern for worsening infection in the brain. [facility] was contacted and regards the patient since they are the ones that managed the brain abscess. Patient was accepted as a transfer to [facility]. He remained on telemetry monitoring and he was consistently tachycardic in the 1 teens to 120s. Echocardiogram was performed with EF of 40-50%. Patient has known cardiomyopathy. Sinus tachycardia was seen on echocardiogram. Patient was monitored here at the hospital. He did have some soft blood pressures. He was transferred on 04/21/2023 to [facility] for further evaluation of brain abscess.
== END 2023-04-21 20:16 | disposition short-term general hospital (02) | DRG 308 ==
LOC: ANHED 15:34 → ANHICU 22:41
PROVIDERS: Admitting Provider Internal Medicine; Emergency Provider Emergency Medicine; Visit Provider Internal Medicine Critical Care Medicine
DX: R00.0 Tachycardia, unspecified (principal); G06.0 Intracranial abscess and granuloma; E87.1 Hypo-osmolality and hyponatremia; I51.81 Takotsubo syndrome; I10 Essential (primary) hypertension; R53.81 Other malaise; R79.89 Other specified abnormal findings of blood chemistry; Z20.822 Contact with and (suspected) exposure to COVID-19; Z79.4 Long term (current) use of insulin; Z79.01 Long term (current) use of anticoagulants
CPT/HCPCS: 36415; 70450; 71275; 73560; 80048; 80053; 81001; 82570; 82948; 83735; 84100; 84300; 84443; 84484; 84550; 85025; 85027; 85610; 85730; 87637; 93005; 96361; 96365; 96367; 96372; 96375; 97161; 97166; 99285; A9270; C8929; G0378; J0696; J1170; J1200; J1644; J1815; J3475; J7030; Q9957; Q9967